=== PATIENT | female | born 1950 | race Caucasian/White ===

== ENCOUNTER 2018-04-04 17:03 | Outpatient (CLI) | payer OTHER, SELFPAY ==
[2018-04-04 17:42] LABS: Abs Immature Grans 0.01 k/cumm (0.0-0.09); Absolute Basophil Count 0.03 k/cumm (0.0-0.2); Absolute Eosinophil Count 0.09 k/cumm (0.0-0.7); Absolute Lymphocyte Count 1.82 k/cumm (1.2-3.4); Absolute Monocyte Count 0.51 k/cumm (0.11-0.7); Absolute Neutrophil Count 3.34 k/cumm (1.2-6.7); Basophils % 0.5; Eosinophils % 1.6; HCT 39.9 % (36.0-46.0); HGB 13.4 g/dL (12.0-15.5); Immature Grans % 0.2; Lymphocytes % 31.4; Mean Corp. HGB Concentration 33.6 g/dL (32.0-36.0); Mean Corpuscular Hemoglobin 32.2 pg (27.0-33.0); Mean Corpuscular Volume 95.9 fL (80-95); Mean Platelet Volume 10.9 fL (8.0-11.0); Monocytes % 8.8; Neutrophils % 57.5; Platelet Count 183 x1000/uL (130-400); RBC 4.16 m/cumm (4.00-5.20); RBC Distribution Width 14.1 % (11.7-14.6)
[2018-04-04 17:55] LABS: PTT Activated 22.4 sec (21.0-31.4); Prothrombin Time 10.2 sec (9.3-10.8)
[2018-04-04 17:56] LABS: VALPROIC ACID 48.2 ug/mL (50-100)
[2018-04-04 19:33] LABS: ALT 38 U/L (12-78)
== END 2018-04-04 17:04 ==
PROVIDERS: PCP Family Medicine
DX: F31.9 Bipolar disorder, unspecified (principal); Z79.899 Other long term (current) drug therapy; Z51.81 Encounter for therapeutic drug level monitoring
CPT/HCPCS: 36415; 80164; 84460; 85025; 85610; 85730